=== PATIENT | female | born 1960 | race Caucasian/White ===

== ENCOUNTER 2022-01-31 10:57 | Outpatient (CLI) | payer BC ==
[2022-01-31 21:27] LABS: SARS-CoV-2 PCR by NAA Not Detected (NotDetected)
== END 2022-01-31 10:58 | disposition home or self-care (01) ==
LOC: LABBT 10:57
PROVIDERS: ATTEND Internal Medicine Gastroenterology
DX: Z12.11 Encounter for screening for malignant neoplasm of colon (principal); Z20.822 Contact with and (suspected) exposure to COVID-19
CPT/HCPCS: U0003; U0005

== ENCOUNTER 2022-02-04 07:27 | Day surgery (SDC) | payer BC ==
[2022-01-31 11:59] VITALS: BMI 25.2
[2022-02-04] MEDS ORDERED: PROPOFOL 200 MG/20 ML VIAL ONE (09:29)
== END 2022-02-04 11:06 | disposition home or self-care (01) ==
LOC: SDC 07:27
PROVIDERS: ATTEND Internal Medicine Gastroenterology
PROC: 0DJD8ZZ Inspection of Lower Intestinal Tract, Via Natural or Artificial Opening Endoscopic (ICD-10-PCS; principal; 2022-02-04)
DX: Z12.11 Encounter for screening for malignant neoplasm of colon (principal); I10 Essential (primary) hypertension; E88.01 Alpha-1-antitrypsin deficiency; J44.9 Chronic obstructive pulmonary disease, unspecified; E03.9 Hypothyroidism, unspecified; Z83.71 Family history of colonic polyps; Z79.1 Long term (current) use of non-steroidal anti-inflammatories (NSAID); Z79.890 Hormone replacement therapy; Z79.899 Other long term (current) drug therapy; Z88.0 Allergy status to penicillin; Z91.030 Bee allergy status; Z91.038 Other insect allergy status; Z99.81 Dependence on supplemental oxygen
CPT/HCPCS: J2704